=== PATIENT | male | born 1985 | race Caucasian/White ===

== ENCOUNTER 2019-02-08 09:49 | Emergency (ER) | payer OTHER ==
--- NOTE | 2019-02-08 10:03 | UC ---
Respiratory Complaint HPI - HPI Summary HPI Summary: 33 yo male presents with URI symptoms. He tells me that for the last 3 days has had sinus pain/pressure/congestion that is much worse on the left compared to right. Post nasal drip and intermittently productive cough. Reports fever of 102F yesterday that resolved with tylenol. He does not smoke. Daughter was recently sick with similar symptoms and had antibiotics and improved. Denies sore throat, SOB, chest pain, abdominal pain, n/v. - History of Current Complaint Chief Complaint: UCRespiratory Stated Complaint: FEVER RESP ISSUE Time Seen by Provider: 02/08/19 10:02 Onset/Duration: Sudden Onset Severity Initially: Moderate Severity Currently: Moderate Pain Intensity: 7 Pain Scale Used: 0-10 Numeric - Allergies/Home Medications Allergies/Adverse Reactions: Allergies Allergy/AdvReac Type Severity Reaction Status Date / Time No Known Allergies Allergy Verified 02/08/19 10:01 PMH/Surg Hx/FS Hx/Imm Hx - Additional Past Medical History Additional PMH: None - Surgical History Surgical History: None - Family History Known Family History: Positive: None - Social History Occupation: Employed Full-time Lives: With Family Alcohol Use: Occasionally Substance Use Type: None Smoking Status (MU): Never Smoked Tobacco Review of Systems All Other Systems Reviewed And Are Negative: Yes Constitutional: Positive: Fever Skin: Positive: Negative Eyes: Positive: Negative ENT: Positive: Nasal Discharge, Sinus Congestion, Sinus Pain/Tenderness Respiratory: Positive: Cough Cardiovascular: Positive: Negative Gastrointestinal: Positive: Negative Neurological: Positive: Negative Psychological: Positive: Negative Physical Exam - Summary Physical Exam Summary: GENERAL: NAD. WDWN. No pain distress. SKIN: No rashes, sores, lesions, or open wounds. HEENT: Head: AT/NC Eyes: EOM intact. Conjunctiva clear without inflammation or discharge. Ears: Hearing grossly normal. TMs intact, no bulging, erythema, or edema. Nose: Nasal mucosa pink and moist. TTP left maxillary Throat: Posterior oropharynx without exudates, erythema, or tonsillar enlargement. Uvula midline. NECK: Supple. Nontender. No lymphadenopathy. CHEST: CTAB. No accessory muscle use. Breathing comfortably and in no distress. CV: RRR. Pulses intact. Cap refill <2seconds NEURO: Alert. PSYCH: Age appropriate behavior. Triage Information Reviewed: Yes Vital Signs: Initial Vital Signs Temp 98.3 F 02/08/19 09:58 Pulse 83 02/08/19 09:58 Resp 17 02/08/19 09:58 BP 141/79 02/08/19 09:58 Pulse Ox 98 02/08/19 09:58 Vital Signs Reviewed: Yes Respiratory Course/Dx - Course Course Of Treatment: Discussed viral vs bacterial causes with the pt and he prefers to be on anbx at this time - Differential Dx/Diagnosis Provider Diagnosis: Sinusitis Discharge ED - Sign-Out/Discharge Documenting (check all that apply): Patient Departure All imaging exams completed and their final reports reviewed: No Studies - Discharge Plan Condition: Stable Disposition: HOME Prescriptions: Amoxicillin PO (*) [Amoxicillin 500 MG CAP*] 500 mg PO Q12H #14 cap Patient Education Materials: Sinusitis (ED) Referrals: Jasen Deleon DO [Primary Care Provider] - Additional Instructions: If you develop a fever, shortness of breath, chest pain, new or worsening symptoms - please call your PCP or go to the ED immediately. - Billing Disposition and Condition Condition: STABLE Disposition: Home
== END 2019-02-08 10:15 | disposition home or self-care (01) ==
LOC: UCEAST 09:49
DX: J32.9 Chronic sinusitis, unspecified (principal); R05 Cough
CPT/HCPCS: 99202; G0463